=== PATIENT | male | born 1985 | race African-American/Black ===

== ENCOUNTER 2018-12-10 10:57 | Emergency (ER) | payer SELFPAY ==
[~2018-12-10] VITALS: Ht 175.3 cm; Wt 68.0 kg
[2018-12-10] MEDS ORDERED: FLUORESCEIN SODIUM 1MG/STRIP BOTHEYE ONE (13:15)
[2018-12-10] MEDS ORDERED: TETRACAINE 0.5% OPHTH DROPS 4ML BOTHEYE ONE (13:15)
[2018-12-10 14:56] VITALS: BP 124/90
== END 2018-12-10 15:04 | disposition home or self-care (01) ==
LOC: ER 10:57
DX: H10.13 Acute atopic conjunctivitis, bilateral (principal)
CPT/HCPCS: 99283